=== PATIENT | male | born 1975 | race Caucasian/White ===

== ENCOUNTER 2016-09-09 11:02 | Outpatient (CLI) | payer BC ==
[~2016-09-09] VITALS: Ht 177.8 cm; Wt 107.7 kg
[2016-09-09] MEDS ORDERED: RT-ALBUINH IH (11:14)
[2016-09-09] MEDS ORDERED: ALBU0.63 IH (11:14)
[2016-09-09 11:16] VITALS: BP 133/91
== END 2016-09-09 12:00 | disposition home or self-care (01) ==
LOC: PREOP 11:02
PROVIDERS: ATTEND Podiatrist Foot & Ankle Surgery
DX: Z01.818 Encounter for other preprocedural examination (principal); Z11.2 Encounter for screening for other bacterial diseases; M20.21 Hallux rigidus, right foot
CPT/HCPCS: 87081

== ENCOUNTER 2016-09-19 08:55 | Day surgery (SDC) | payer BC ==
--- NOTE | 2016-09-09 11:27 | HISTORY AND PHYSICAL ---
DICTATING PHYSICIAN: Dr. Connell DATE OF ADMISSION: 09/19/[address] Shaikh. CHIEF COMPLAINT: Right foot, big toe surgery to have done by Dr. Shaikh. ALLERGIC TO MEDICATIONS: ERYTHROMYCIN which makes me vomit MEDICATIONS NOW ON: Albuterol rescue inhaler for asthma p.r.n. SURGERIES: Left knee 18 years ago ACL football injury. FAMILY HISTORY: Mother asthma. Denies TB, diabetes, heart disease, lung disease, cancer. REVIEW OF SYSTEMS: HEAD: Denies headache, dizziness, fainting. EYES, EARS, NOSE AND THROAT: Denies diplopia, tinnitus, sore throat. RESPIRATORY: I have asthma. Denies TB, coughing, congestion, smoking or wheezing. HEART: Denies heart problems, chest pain or heart murmur. GASTROINTESTINAL: Appetite good. Denies blood in stools, diarrhea, constipation, ulcer, vomiting. GENITOURINARY: Denies blood, pain, frequency. PHYSICAL EXAMINATION: The patient is a white male, well-nourished, well-developed, in no acute respiratory distress at rest. Pulse 60, blood pressure 140/90, weight 236. EARS: Not inflamed. EYES: No conjunctivitis or icterus. THROAT: Not inflamed. NECK: Thyroid not enlarged. No abnormal cervical lymphadenopathy noted. HEART: Regular rate and rhythm. LUNGS: Clear to auscultation. ABDOMEN: Soft. Liver and spleen not palpable good bowel sounds. EXTREMITIES: No pretibial edema. Good dorsalis pedis pulses noted. The patient okay to have surgery. We will be on standby if has any problems. Job ID: [id number] Dictated Date: 09/09/2016 10:00:03 Social Work Therapist Date: 09/09/2016 11:21:55/arsalan
[~2016-09-19] VITALS: Ht 177.8 cm; Wt 107.7 kg
[~2016-09-19 08:55] MED LIST: ALBU0.63 IH; RT-ALBUINH IH
[2016-09-19] MEDS ORDERED: NS (IVPB) 50 ML ONE ×2 (08:58→09:01)
[2016-09-19] MEDS ORDERED: ceFAZolin 1,000 MG (ANCEF) VIAL ONE ×2 (08:58→09:01)
[2016-09-19] MEDS ORDERED: ceFAZolin 1 GM/NS 50 ML IVPB IV ONE ×2 (09:15)
[2016-09-19] MEDS ORDERED: CATHETER FLUSH 10 ML SYR IV PRN (09:15)
[2016-09-19 09:16] VITALS: BP 134/96
[2016-09-19] MEDS ORDERED: LACTATED RINGERS 1,000 ML IV PRN (09:20)
[2016-09-19] MEDS ORDERED: LIDOCAINE PF 2% 10 ML (XYLOCAINE) AMP ONE (09:27)
[2016-09-19] MEDS ORDERED: ROCURONIUM 50 MG/5 ML (ZEMURON) VIAL IV ONE (09:27)
[2016-09-19] MEDS ORDERED: ONDANSETRON 4 MG/2 ML (SDV) Z0FRAN ONE (09:27)
[2016-09-19] MEDS ORDERED: fentaNYL INJECTION 100 MCG/2 ML AMP ONE ×2 (09:27→10:13)
[2016-09-19] MEDS ORDERED: proPOfol 200 MG/20 ML (DIPRIVAN) VIAL IV ONE (09:27)
[2016-09-19] MEDS ORDERED: LIDOCAINE JELLY 2% (XYLOCAINE) 5 ML TUBE ONE (09:27)
[2016-09-19] MEDS ORDERED: MIDAZOLAM 2 MG/2 ML (VERSED) VIAL ONE (09:28)
[2016-09-19] MEDS ORDERED: DEXAMETHASONE PF 10 MG/ML (DECADRON) VIAL ONE ×2 (09:30→10:37)
[2016-09-19] MEDS ORDERED: BUPIVACAINE 0.5% 30 ML (SENSORCAINE) VIAL ONE (09:30)
--- NOTE | 2016-09-19 09:46 | Progress Note-Pre Operative ---
Pre-Operative Progress Note H&P Reviewed The H&P was reviewed, patient examined and no changes noted. Date H&P Reviewed: Sep 19, 2016 Time H&P Reviewed: 09:35 Pre-Operative Diagnosis: Hallux Rigidus, right MARCEL STEVE DPM Sep 19, 2016 9:46 am
--- NOTE | 2016-09-19 11:00 | Progress Note-Post Operative ---
Post-Operative Progess Note Surgeon (s)/Curatorial Specialist (s) Surgeon MARCEL STEVE DPM Curatorial Specialist: None Pre-Operative Diagnosis Hallux Rigidus, right Post-Operative Diagnosis Same Post-Op Procedure Note Date of Procedure: Sep 19, 2016 Name of Procedure Performed: Cheilectomy, right Description of the Procedure: Reduction of bone spurs to the right 1st MTPJ Findings of the Procedure large exostosis to the right 1st MTPJ Anesthesia Type General Estimated blood loss (mL): Minimal Specimen(s) collected/removed Dorsal spurring of the right 1st metatarsal head MARCEL STEVE DPM Sep 19, 2016 11:00 am
[2016-09-19] MEDS ORDERED: HYDR-3812 PO (11:02)
--- NOTE | 2016-09-19 11:04 | Discharge Inst-Simple/Standard ---
Discharge Inst-Standard Patient Instructions/Follow Up Plan of Care/Instructions/FU: See Dr Steve's post operative instruction sheet. Activity as Tolerated: No Goal: Return to full activity Discharge Diet: No Restrictions Return to The Hospital For: Excessive bleeding or pain Other Inst to Patient Range of motion exercises to the right great toe joint, 20 repetitions at least twice a day. MARCEL STEVE DPM Sep 19, 2016 11:04 am
[2016-09-19] MEDS ORDERED: LACTATED RINGERS 1,000 ML IV ONE (11:05)
[2016-09-19] MEDS ORDERED: SEVOFLURANE (ULTANE) 15 ML INHAL SOLN ONE (11:06)
[2016-09-19] MEDS ORDERED: MEPERIDINE (DEMEROL) INJ 50 MG/ML IVP PRN (11:15)
[2016-09-19] MEDS ORDERED: ONDANSETRON 4 MG/2 ML (SDV) Z0FRAN IVP PRN ×2 (11:15→11:30)
[2016-09-19] MEDS ORDERED: LACTATED RINGERS 1,000 ML IV SCH (11:17)
[2016-09-19] MEDS ORDERED: morphine INJ 10 MG/ML 1ML (SYR OR VIAL) ONE (11:25)
[2016-09-19] MEDS: morphine INJ 10 MG/ML 1ML (SYR OR VIAL) IVP PRN ×2 (11:28→11:35)
[2016-09-19] MEDS ORDERED: HYDROcodone/APAP 5 MG/325 MG (LORTAB) TAB PO PRN (11:30)
[2016-09-19 12:00] VITALS: BP 126/85
--- NOTE | 2016-09-19 12:16 | OPERATIVE REPORT ---
DATE OF SERVICE: 09/19/2016 SURGEON: Adwoa Steve DPM PREOPERATIVE DIAGNOSIS: Hallus rigidus, right. POSTOPERATIVE DIAGNOSIS: Hallux rigidus, right. PROCEDURE: Cheilectomy, right foot. WOUND CLASS: Clean. ANESTHESIA: General. HEMOSTASIS: Pneumatic thigh tourniquet at 300 mmHg. INDICATION: This 41-year-old male presents complaining of a painful right great toe joint. Conservative therapy has been with unsatisfactory results and the patient is agreeable to surgical intervention after risks and complications were discussed at length. No guarantees were extended to the patient and he is willing to proceed. PROCEDURE: The patient was brought back to the operating table and placed in a secure, supine position. A general anesthetic was then induced. A pneumatic thigh tourniquet was placed on the right lower extremity over several layers of padding. An appropriate timeout was of course performed. The right foot was then prepped and draped in the normal sterile manner. The right foot was then elevated and allowed to exsanguinate after which the tourniquet was inflated to 300 mmHg. Attention was then directed to the dorsal aspect of the right 1st metatarsophalangeal joint where a 5 cm longitudinal linear incision was created. The incision was deepened in the same plane with great care to identify and retract all vital neurovascular structures. The only necessary blood vessels were cauterized as encountered. The incision was deepened down to the capsular tissue where a longitudinal capsulotomy was performed. Just below the capsule tissue was a large dorsal exostosis to the 1st metatarsal head which was resected utilizing a power sagittal saw. The head was fairly contoured and smoothed with a power niranjan. The head of the 1st metatarsal was inspected and approximately 30% of the dorsolateral aspect of the metatarsal head was devoid of hyaline articular cartilage. This area was then fenestrated with a 1.5 mm drill. The wound was flushed with copious amounts of normal saline. We utilized a rongeur. The dorsal medial and lateral spurring to the base of the proximal phalanx was also reduced and smoothed. Excellent range of motion was now appreciated to the right 1st metatarsophalangeal joint with approximately 45 degrees of dorsiflexion. The wound was flushed once again after which closure was then performed in layers. Deep closure was performed with 3-0 Vicryl, superficial with 4-0 Vicryl, skin closed with 4-0 Prolene in a horizontal type stitch. A postoperative injection consisted of 15 mL of 0.5% Marcaine in a Mejia block followed by 10 mg of dexamethasone to the right 1st metatarsophalangeal joint. Postoperative dressing consisted of Betadine soaked Adaptic, sterile 4 x 4s, sterile Kerlix, all secured with a Coban wrap. The patient tolerated the anesthesia and procedure well and was transported from the operating room to the recovery area with vital signs stable and vascular status intact to all digits of the right foot. He was given a prescription for Vicodin and postoperative instructions. He is to followup in the office on 09/29 or sooner if necessary. Job ID: [id number] DocumentID: [id number] Dictated Date: 09/19/2016 11:14:42 Vamp Stitcher Date: 09/19/2016 12:16:00 Dictated By: ADWOA STEVE DPM
[2016-09-19 12:30] VITALS: BP 132/89
[2016-09-19 13:05] VITALS: BP 132/89
[2016-09-19 13:24] VITALS: BP 132/89
== END 2016-09-19 13:24 | disposition home or self-care (01) ==
LOC: SDC 08:55
PROVIDERS: ATTEND Podiatrist Foot & Ankle Surgery
DX: M20.21 Hallux rigidus, right foot (principal); J45.909 Unspecified asthma, uncomplicated
CPT/HCPCS: 88305

== ENCOUNTER 2017-01-04 05:34 | Outpatient (CLI) | payer BC ==
[~2017-01-04] VITALS: Ht 177.8 cm; Wt 107.7 kg
[~2017-01-04 05:34] MED LIST changes: +HYDR-3812 PO
[2017-01-04] MEDS ORDERED: FLUT9.9S NS (09:15)
== END 2017-01-04 09:22 ==
LOC: PREOP 05:34
PROVIDERS: ATTEND Podiatrist Foot & Ankle Surgery
DX: Z01.818 Encounter for other preprocedural examination (principal); M25.871 Other specified joint disorders, right ankle and foot

== ENCOUNTER 2017-01-06 12:16 | Day surgery (SDC) | payer BC ==
[~2017-01-06] VITALS: Ht 177.8 cm; Wt 107.7 kg
[~2017-01-06 12:16] MED LIST changes: +FLUT9.9S NS
[2017-01-06] MEDS ORDERED: ceFAZolin 1 GM/NS 50 ML IVPB IV ONE ×2 (13:00)
[2017-01-06] MEDS ORDERED: MIDAZOLAM 2 MG/2 ML (VERSED) VIAL ONE (13:41)
[2017-01-06] MEDS ORDERED: ONDANSETRON 4 MG/2 ML (SDV) Z0FRAN ONE ×2 (13:41→15:17)
[2017-01-06] MEDS ORDERED: proPOfol 200 MG/20 ML (DIPRIVAN) VIAL IV ONE (13:41)
[2017-01-06] MEDS ORDERED: fentaNYL INJECTION 100 MCG/2 ML AMP ONE (13:41)
[2017-01-06] MEDS ORDERED: LIDOCAINE PF 2% 5 ML (XYLOCAINE) VIAL ONE (13:41)
[2017-01-06] MEDS ORDERED: SEVOFLURANE (ULTANE) 15 ML INHAL SOLN ONE ×4 (13:41→16:04)
[2017-01-06] MEDS ORDERED: LACTATED RINGERS 1,000 ML IV ONE (13:41)
[2017-01-06] MEDS: LACTATED RINGERS 1,000 ML IV PRN ×2 (13:48→15:05)
[2017-01-06] MEDS ORDERED: DEXAMETHASONE PF 10 MG/ML (DECADRON) VIAL ONE (14:21)
[2017-01-06] MEDS ORDERED: BUPIVACAINE 0.5% 30 ML (SENSORCAINE) VIAL ONE (14:21)
--- NOTE | 2017-01-06 14:27 | Progress Note-Pre Operative ---
Pre-Operative Progress Note H&P Reviewed The H&P was reviewed, patient examined and no changes noted. Date Seen by Provider: Jan 06, 2017 Time Seen by Provider: 14: Date H&P Reviewed: Jan 06, 2017 Time H&P Reviewed: : Pre-Operative Diagnosis: Sesamoiditis right foot MARCEL STEVE DPM Jan 06, 2017 2:26 pm
[2017-01-06 14:38] VITALS: BP 124/76
[2017-01-06] MEDS ORDERED: morphine INJ 10 MG/ML 1ML (SYR OR VIAL) ONE (15:17)
[2017-01-06] MEDS ORDERED: LACTATED RINGERS 1,000 ML IV SCH (16:16)
--- NOTE | 2017-01-06 16:16 | Progress Note-Post Operative ---
Post-Operative Progess Note Surgeon (s)/Percussion Instrument Repairer (s) Surgeon MARCEL STEVE DPM Percussion Instrument Repairer: None Pre-Operative Diagnosis Sesamoiditis right foot Post-Operative Diagnosis Same Procedure & Operative Findings Date of Procedure 01/06/17 Procedure Performed/Findings Lateral sesamoidectomy, right foot Anesthesia Type General Estimated Blood Loss Estimated blood loss (mL): Minimal Specimens/Packing Specimens Removed Lateral Sesamoid, right Packing: None MARCEL STEVE DPM Jan 06, 2017 4:16 pm
[2017-01-06] MEDS ORDERED: HYDR-3812 PO (16:18)
[2017-01-06] MEDS ORDERED: HYDROcodone/APAP 5 MG/325 MG (LORTAB) TAB PO PRN (16:30)
[2017-01-06] MEDS: morphine INJ 10 MG/ML 1ML (SYR OR VIAL) IVP PRN ×3 (16:30→16:40)
[2017-01-06] MEDS ORDERED: HYDROmorphone (DILAUDID) 2 MG/ML VIAL IVP PRN (16:30)
[2017-01-06] MEDS ORDERED: MEPERIDINE (DEMEROL) INJ 50 MG/ML IVP PRN (16:30)
[2017-01-06] MEDS ORDERED: ONDANSETRON 4 MG/2 ML (SDV) Z0FRAN IVP PRN ×2 (16:30)
[2017-01-06 17:10] VITALS: BP 141/101
[2017-01-06 17:40] VITALS: BP 142/92
--- NOTE | 2017-01-06 18:00 | Diagnostic Imaging Report ---
INDICATION: Surgery. FINDINGS: Fluoroscopy was utilized by surgery during sesamoidectomy. IMPRESSION: Fluoroscopy utilized during surgery. Dictated by: Dictated on workstation # [id number]
[2017-01-06 18:10] VITALS: BP 143/96
[2017-01-06 18:50] VITALS: BP 143/96
--- NOTE | 2017-01-06 20:32 | OPERATIVE REPORT ---
DATE OF SERVICE: 01/06/2017 DATE OF SERVICE: 01/06/2017 SURGEON: MARCEL STEVE DPM. PREOPERATIVE DIAGNOSIS: 1. Lateral sesamoiditis, right foot. 2. History of hallux rigidus, right first metatarsal phalangeal joint. POSTOPERATIVE DIAGNOSIS: 1. Lateral sesamoiditis, right foot. 2. History of hallux rigidus, right first metatarsal phalangeal joint. PROCEDURE: Lateral sesamoidectomy, right foot. WOUND CLASS: Clean. ANESTHESIA: General. HEMOSTASIS: Pneumatic ankle tourniquet 300 mmHg. INDICATION: This 41-year-old male presents complaining of lateral sesamoid pain. Conservative therapy was met with unsatisfactory results and the patient is agreeable to surgical intervention after risks and complications were explained to the patient. No guarantees were extended to the patient and he is willing to proceed. PROCEDURE: The patient was brought back to the operating table, placed in a secure supine position. Appropriate time out was performed. The general anesthetic was then induced. Pneumatic thigh tourniquet was placed on the right lower extremity. There were several layers of padding. The right foot was then prepped and draped in normal sterile manner. The right foot was then elevated and allowing to exsanguinate after which the tourniquet was inflated to 300 mmHg. Attention was then directed to the dorsal aspect of the right first metatarsal phalangeal joint where on there was a lateral bias to the incision that is approximately 5 cm in length. The incision was deepened in the same plane. Great care was taken to identify and retract all vital neurovascular structures. Only the necessary blood vessels were cauterized as encountered. The incision was deepened down to the inner metatarsal space where blunt dissection was carried. Lateral capsulorrhaphy was performed after which the conjoined tendon of the adductor hallucis was identified and retracted. Next the fibular sesamoidal ligament was released. During this dissection some loose bony fragments from the metatarsal head was identified and resected. The wound was flushed with copious amounts of normal saline. Attempt to get down to the lateral sesamoid was made but was unsuccessful. A plantar incision was then made. Intraoperative C-arm helped guide the 2 mm linear incision to the plantar aspect of the first head metatarsal space just adjacent to the fibular sesamoid. Blunt dissection was carried out to the sesamoidal apparatus where a longitudinal incision was created. The lateral sesamoid was then shelled from its attachment from the peroneus brevis tendon. Great care was taken to medially deviate the flexor hallucis longus tendon. The sesamoid was removed en toto and was confirmed by C-arm. The wound was flushed with copious amounts of normal saline and closure was then performed in layers. The closure was performed both to the dorsal and plantar incision with 3-0 Vicryl, superficial closure with 4-0 Vicryl, skin closure with 4-0 Prolene in a horizontal mattress type stitch to this dorsal and plantar incisions. Postoperative injection consisted of 10 mL of 0.5% Marcaine injected in local infusions of surgical site. We also injected 10 mg of dexamethasone to the lateral aspect of the first metatarsal phalangeal joint, right. Postoperative dressing consisted of betadine soaked adaptic, sterile 4 x 4's, sterile Kerlix, all secured with a Coban wrap. The patient tolerated anesthesia procedure well and was transported from the operating room to the recovery area with vital signs stable and vascular status intact to all digits of the right foot. He is to follow up in my office in 10 days period of time or sooner if necessary. Job ID: [id number] DocumentID: [id number] Dictated Date: 01/06/2017 16:22:48 Form Building Supervisor Date: 01/06/2017 20:31:37 Dictated By: UNIQUE BARRERA
== END 2017-01-06 18:50 | disposition home or self-care (01) ==
LOC: SDC 12:16
PROVIDERS: ATTEND Podiatrist Foot & Ankle Surgery
DX: M25.871 Other specified joint disorders, right ankle and foot (principal); J45.909 Unspecified asthma, uncomplicated; Z79.899 Other long term (current) drug therapy
CPT/HCPCS: 87081

== ENCOUNTER → 2020-08-24 | Outpatient (CLI) | payer SELFPAY ==
[~2020-08-24] MED LIST changes: +ACHD5005 PO; -HYDR-3812 PO
--- NOTE | 2020-08-24 08:43 | Diagnostic Imaging Report ---
EXAMINATION: CT calcium scoring without contrast. TECHNIQUE: Multiple contiguous axial images were obtained through the chest without the use of intravenous contrast for purposes of calcium scoring. All CT scans use one or more of the following dose optimizing techniques: automated exposure control, MA and/or KvP adjustment based on a patient size and exam type, or iterative reconstruction. HISTORY: Hyperlipidemia. COMPARISON: None available. FINDINGS: The calculated coronary artery calcium score is zero. There is no edema or pneumonia. No pleural effusion. No pneumothorax. No suspicious nodules. Heart size is normal. No pericardial effusion. Aorta is normal in caliber. There is no axillary or supraclavicular lymphadenopathy. There is no mediastinal lymphadenopathy. Limited views of the upper abdomen are unremarkable. There are no suspicious osseus lesions. IMPRESSION: Calculated coronary artery calcium score of zero. Dictated by: Dictated on workstation # [id number]
== END ==
LOC: RAD FS 08:14
PROVIDERS: ATTEND Family Medicine
DX: E78.5 Hyperlipidemia, unspecified (principal)
CPT/HCPCS: 75571

== ENCOUNTER 2022-01-08 13:01 | Emergency (ER) | payer BC, OTHER ==
[~2022-01-08] VITALS: Ht 177.8 cm; Wt 114.5 kg
[2022-01-08] MEDS ORDERED: ANTACID SUSP 30 ML UDC (MYLANTA) PO ONE (13:45)
[2022-01-08] MEDS ORDERED: LIDOCAINE 2% VISCOUS 15 ML UDC PO ONE (13:45)
[2022-01-08] MEDS ORDERED: KETOROLAC 30 MG/ML VIAL IVP STA (13:53)
[2022-01-08] MEDS ORDERED: NS IV 1000 ML 1,000 ML IV STA (13:53)
[2022-01-08 14:05] LABS: BASOPHILS % (AUTO) 0 % (0-10); EOSINOPHILS # (AUTO) 0.2 10^3/uL (0.0-0.3); EOSINOPHILS % (AUTO) 2 % (0-10); HEMATOCRIT 44 % (40-54); HEMOGLOBIN 15.2 g/dL (13.3-17.7); LYMPHOCYTES # (AUTO) 2.6 10^3/uL (1.0-4.0); LYMPHOCYTES % (AUTO) 27 % (12-44); MEAN CORPUSCULAR HEMOGLOBIN 31 pg (25-34); MEAN CORPUSCULAR HGB CONC 35 g/dL (32-36); MEAN CORPUSCULAR VOLUME 91 fL (80-99); MEAN PLATELET VOLUME 10.5 fL (9.0-12.2); MONOCYTES # (AUTO) 0.7 10^3/uL (0.0-1.0); MONOCYTES % (AUTO) 7 % (0-12); NEUTROPHILS # (AUTO) 6.1 10^3/uL (1.8-7.8); NEUTROPHILS % (AUTO) 63 % (42-75); PLATELET COUNT 244 10^3/uL (130-400); WHITE BLOOD COUNT 9.7 10^3/uL (4.3-11.0)
--- NOTE | 2022-01-08 14:15 | ED Abdominal Pain ---
General Chief Complaint: Abdominal/GI Problems Stated Complaint: EPIGASTRIC PAIN Nursing Triage Note: Patient c/o RUQ pain that started last night. Pt. states his pain last night was a sharp pain and states today he is having pressure. Pt. denies any fevers, N/V/D, AMOR, or urinary symptoms. Pt. states he had 2 BM yesterday. Pt. denies any Hx. of Gallbladder issues. Pt. states he has a Hx. of GERD. Pt. tender to RUQ with palpation. Source of Information: Patient History of Present Illness Date Seen by Provider: Jan 08, 2022 Time Seen by Provider: 13:39 Initial Comments 46-year-old male presenting with right upper quadrant abdominal pain. He states that this pain has been off and on for a while but usually is just more of an ache or discomfort. Last night after supper he had sharp pain that has persisted. The sharp pain was severe enough he could not sleep last night. He states that he is not going to his back or radiating. He does have a history of GERD and reflux that is worse when he is laying down at night. He did try taking some Dulcolax in case he was constipated and that helps him have a bowel movement but it did not make any difference on his pain. He denies any fever, chills, nausea, vomiting, diarrhea, pain with urination, blood in stool, blood in his urine. He had eaten wings and tapioca pudding last night prior to his episode of pain. If he lays down the pain is worse. If he is sitting upright he states the pain is more of just an ache. Timing/Duration: 12-24 Hours Severity/Quality: Severe Location: RUQ Radiation: No Radiation Activities at Onset: Other (after eating) Modifying Factors: Worsens With Eating, Worsens With Lying down Associated Symptoms: No Back Pain, No Chest Pain, No Diaphoresis, No Fever/Chills, No Fatigue, No Headache, No Heartburn, No Nausea/Vomiting, No Rash, No Shortness of Air, No Swelling/Mass in Abdomen, No Syncope, No Weakness Allergies and Home Medications Allergies Coded Allergies: erythromycin base (Verified Allergy, Intermediate, N/V, 01/04/17) Patient Home Medication List Home Medication List Reviewed: Yes Albuterol Sulfate (Proair Hfa) 1 Puff Puff, 2 PUFF IH Q4H PRN for SHORTNESS OF BREATH, (Reported) Entered as Reported by: FRANK TRAORE on 09/09/16 1114 Fluticasone Propionate (Flonase Allergy Relief) 9.9 Ml [place].susp, 1 SPRAY NS DAILY, (Reported) Entered as Reported by: FRANK TRAORE on 01/04/17 0915 Hydrocodone Bit/Acetaminophen (Lortab 5 Mg Tablet) 1 Each Tablet, 1-2 TAB PO Q4-6HR PRN for PAIN Prescribed by: MARCEL STEVE on 01/06/17 1618 Hydrocodone/Acetaminophen (Hydrocodone-Acetamin 5-325 mg) 5 Mg-325 Mg Tablet, 1 TAB PO Q6H PRN for PAIN-SEVERE (8-10) Prescribed by: EDDIE BURKS on 01/08/22 1517 Review of Systems Review of Systems Constitutional: No chills, No fever EENTM: No Symptoms Reported Respiratory: No Symptoms Reported Cardiovascular: No Symptoms Reported Gastrointestinal: See HPI Genitourinary: No Symptoms Reported Musculoskeletal: no symptoms reported Skin: no symptoms reported Psychiatric/Neurological: No Symptoms Reported Endocrine: No Symptoms Reported Past Zgdfepi-Zfhjqq-Ynxmye Hx Patient Social History Tobacco Use?: No Smokeless Tobacco Frequency: Never a User Use of E-Cig and/or Vaping dev: No Use of E-Cig and/or Vaping Jayden: Never a User Substance use?: No Alcohol Use?: Yes Alcohol Frequency: Rarely Pt feels they are or have been: No Immunizations Up To Date Influenza Vaccine Up-to-Date: Yes; Up-to-Date Seasonal Allergies Seasonal Allergies: Yes Past Medical History Surgery/Hospitalization HX: ADHD, Asthma, GERD Asthma Reproductive Disorders: No Sexually Transmitted Disease: No HIV/AIDS: No Gastroesophageal Reflux Arthritis Loss of Vision: Denies Hearing Impairment: Denies Adverse Reaction/Blood Tranf: No (N/A) Physical Exam Vital Signs Vital Signs - First Documented 01/08/22 13:06 Temp 37.1 Pulse 72 Resp 12 B/P (MAP) 139/88 (105) Pulse Ox 97 O2 Delivery Room Air Capillary Refill : Height/Weight/BMI Height: 5'10.00" Weight: 237lbs. 6.0oz. 107.748405ha; 36.00 BMI Method: General Appearance: no apparent distress, obese HEENT: PERRL/EOMI, pharynx normal Neck: non-tender, full range of motion, supple, normal inspection Respiratory: chest non-tender, lungs clear, normal breath sounds, no respiratory distress, no accessory muscle use Cardiovascular: normal peripheral pulses, regular rate, rhythm Gastrointestinal: normal bowel sounds, soft, no pulsatile mass; No distended, No guarding, No rebound; tenderness (RUQ pain and positive Reyna's) Rectal: deferred Extremities: normal range of motion, non-tender, normal inspection, normal capillary refill Back: no CVA tenderness Neurologic/Psychiatric: alert, oriented x 3 Skin: normal color, warm/dry Images 1 - RUQ abd pain with palpation and positive Reyna's Progress/Results/Core Measures Results/Orders Lab Results Laboratory Tests Test 01/08/22 14:04 Range/Units White Blood Count 9.7 4.3-11.0 10^3/uL Red Blood Count 4.84 4.30-5.52 10^6/uL Hemoglobin 15.2 13.3-17.7 g/dL Hematocrit 44 40-54 % Mean Corpuscular Volume 91 80-99 fL Mean Corpuscular Hemoglobin 31 25-34 pg Mean Corpuscular Hemoglobin Concent 35 32-36 g/dL Red Cell Distribution Width 13.4 10.0-14.5 % Platelet Count 244 130-400 10^3/uL Mean Platelet Volume 10.5 9.0-12.2 fL Immature Granulocyte % (Auto) 1 % Neutrophils (%) (Auto) 63 42-75 % Lymphocytes (%) (Auto) 27 12-44 % Monocytes (%) (Auto) 7 0-12 % Eosinophils (%) (Auto) 2 0-10 % Basophils (%) (Auto) 0 0-10 % Neutrophils # (Auto) 6.1 1.8-7.8 10^3/uL Lymphocytes # (Auto) 2.6 1.0-4.0 10^3/uL Monocytes # (Auto) 0.7 0.0-1.0 10^3/uL Eosinophils # (Auto) 0.2 0.0-0.3 10^3/uL Basophils # (Auto) 0.0 0.0-0.1 10^3/uL Immature Granulocyte # (Auto) 0.1 0.0-0.1 10^3/uL Sodium Level 139 135-145 MMOL/L Potassium Level 4.9 3.6-5.0 MMOL/L Chloride Level 107 98-107 MMOL/L Carbon Dioxide Level 23 21-32 MMOL/L Anion Gap 9 5-14 MMOL/L Blood Urea Nitrogen 15 7-18 MG/DL Creatinine 1.20 0.60-1.30 MG/DL Estimat Glomerular Filtration Rate 75 BUN/Creatinine Ratio 13 Glucose Level 100 70-105 MG/DL Calcium Level 9.3 8.5-10.1 MG/DL Corrected Calcium 8.5-10.1 MG/DL Total Bilirubin 0.5 0.1-1.0 MG/DL Aspartate Amino Transf (AST/SGOT) 29 5-34 U/L Alanine Aminotransferase (ALT/SGPT) 38 0-55 U/L Alkaline Phosphatase 80 40-136 U/L Total Protein 7.8 6.4-8.2 GM/DL Albumin 4.6 H 3.2-4.5 GM/DL Lipase 36 8-78 U/L My Orders Orders - EDDIE BURKS MD Lidocaine 2% Viscous 15 Ml (Xylocaine Vi (01/08/22 13:45) Antacid Suspension (Mylanta Suspension (01/08/22 13:45) Comprehensive Metabolic Panel (01/08/22 13:53) Lipase (01/08/22 13:53) Ed Iv/Invasive Line Start (01/08/22 13:53) Cbc With Automated Diff (01/08/22 13:53) Ct Abdomen/Pelvis W (01/08/22 13:53) Ketorolac Injection (Toradol Injection) (01/08/22 13:53) Ns Iv 1000 Ml (Sodium Chloride 0.9%) (01/08/22 13:53) Iohexol Injection (Omnipaque 350 Mg/Ml 1 (01/08/22 14:30) Received Contrast (Hold Metformin- Contr (01/08/22 14:30) Ns (Ivpb) (Sodium Chloride 0.9% Ivpb Bag (01/08/22 14:30) Medications Given in ED Current Medications Medications Dose Ordered Sig/Liliana Route Start Time Stop Time Status Last Admin Dose Admin Al Hydrox/Mg Hydrox/Simethicone 30 ml ONCE ONCE PO 01/08/22 13:45 01/08/22 13:46 DC 01/08/22 13:40 30 ML Lidocaine HCl 15 ml ONCE ONCE PO 01/08/22 13:45 01/08/22 13:46 DC 01/08/22 13:40 15 ML Vital Signs/I&O 01/08/22 01/08/22 13:06 15:25 Temp 37.1 Pulse 72 62 Resp 12 B/P (MAP) 139/88 (105) 140/99 Pulse Ox 97 98 O2 Delivery Room Air Room Air Blood Pressure Mean: 105 Progress Progress Note #1: Progress Note A GI cocktail was tried in case any of this was GERD but his symptoms seem to be more right upper quadrant and possible gallbladder. His pain was not improved with GI cocktail so labs were drawn and a CT scan was ordered. Give IV fluid normal saline 1 L bolus for hydration, Toradol to try and help with pain. Progress Note #2: Progress Note CBC and chemistry are stable without acute significant abnormality. The CT scan does not show acute process to account for his symptoms. His gallbladder does appear to be enlarged to me but no definite stones. There is no pericholecystic fluid. His LFTs are all normal. Counseled patient and spouse about findings and results. Patient states that his pain is a 2 or 3. Will discharge with a few hydrocodone if needed for severe pain. Counseled on bland low-fat diet. Give outpatient order for gallbladder ultrasound. Given information and phone numbers for him to call to try and set that up through [facility] or [facility]. Advised he may still need to do a nuclear medicine scan such as a HIDA scan to check on the function of his gallbladder. Also given information for Dr. Gutierrez the surgeon on-call if patient has continued pain and problems he may need to follow-up with the surgeon at an especially if he has gallstones and gallbladder dysfunction he would need surgery for removal of the gallbladder Diagnostic Imaging Diagonstic Imaging: CT Plain Films/CT/US/NM/MRI: abdomen, pelvis Comments NAME: EASTON HENNINGPATRICE Lo MED REC#: [id number] PT STATUS: REG ER : 1975 PHYSICIAN: EDDIE BURKS MD ADMIT DATE: 01/08/22/ER FS Draft Date of Exam:01/08/22 CT ABDOMEN/PELVIS W EXAMINATION: CT abdomen and pelvis with intravenous contrast. TECHNIQUE: Multiple contiguous axial images were obtained through the abdomen and pelvis after the uneventful administration of intravenous contrast. All CT scans use one or more of the following dose optimizing techniques: automated exposure control, MA and/or KvP adjustment based on patient size and exam type or iterative reconstruction. HISTORY: Right upper quadrant abdominal pain. COMPARISON: None available. FINDINGS: The heart is unremarkable. The included lung bases are clear. The liver, spleen, pancreas, adrenal glands and kidneys have a normal appearance. The gallbladder demonstrates no evidence of cholelithiasis. The portal vein is patent. There is no pathologically enlarged mesenteric or retroperitoneal adenopathy. The bowel loops are nondilated. The appendix is visualized in the right lower quadrant and has a normal appearance. There is no free fluid or free air. No acute osseous abnormality. Ureters and bladder are grossly normal. There is no free air, loculated collection or adenopathy in the pelvis. IMPRESSION: 1. No acute abnormality in the abdomen and pelvis. No bowel resection, free fluid or free air. Normal appendix. 2. No CT evidence of cholelithiasis or acute cholecystitis. Dictated on workstation # [id number] Dict: 01/08/22 1432 Trans: 01/08/22 1447 [facility] [id number] Interpreted by: JEAN CARROLL DO Electronically signed by: Reviewed: Reviewed by Me Departure Impression Primary Impression: Colicky RUQ abdominal pain Disposition: 01 HOME, SELF-CARE Condition: Stable Departure-Patient Inst. Decision time for Depature: 15:15 Referrals: HALEY ESTRADA MD (PCP) Primary Care Physician BROOKE GUTIERREZ DO Patient Instructions: Abdominal Pain, Adult ED, Gallbladder Diet Add. Discharge Instructions: Follow a strict low-fat bland diet. See about setting up an ultrasound to take a look at the gallbladder. You could call [facility] radiology scheduling at [phone]. You could call them between 7 and 7:30 in the morning on Monday to see about setting up an ultrasound for that day. If [facility] was not able to schedule you for an ultrasound on Monday you could also try calling the [facility] at [phone] and see if [facility] was available to do the ultrasound here in [place]. Once the ultrasound was done that showed gallstones you could see if Dr. Estrada can set you up with a surgeon for the gallbladder. Dr. Gutierrez is the on-call surgeon this weekend and his number is on your paperwork as well. All discharge instructions reviewed with patient and/or family. Voiced understanding. Scripts Hydrocodone/Acetaminophen (Hydrocodone-Acetamin 5-325 mg) 5 Mg-325 Mg Tablet 1 TAB PO Q6H PRN for PAIN-SEVERE (8-10) for 3 Days, #12 TAB 0 Refills Prov: EDDIE BURKS MD 01/08/22 EDDIE BURKS MD Jan 08, 2022 14:15
[2022-01-08 14:28] LABS: ALANINE AMINOTRANSFERASE 38 U/L (0-55); ALBUMIN 4.6 GM/DL (3.2-4.5); ALKALINE PHOSPHATASE 80 U/L (40-136); BILIRUBIN,TOTAL 0.5 MG/DL (0.1-1.0); BUN/CREATININE RATIO 13; CALCIUM 9.3 MG/DL (8.5-10.1); CARBON DIOXIDE 23 MMOL/L (21-32); CHLORIDE 107 MMOL/L (98-107); GFR ESTIMATED 75; GLUCOSE 100 MG/DL (70-105); LIPASE 36 U/L (8-78); POTASSIUM 4.9 MMOL/L (3.6-5.0); SODIUM 139 MMOL/L (135-145); TOTAL PROTEIN 7.8 GM/DL (6.4-8.2)
[2022-01-08] MEDS ORDERED: HOLD METFORMIN - RECEIVED CONTRAST 20 ML VIAL IV SCH (14:30)
[2022-01-08] MEDS ORDERED: IOHEXOL 350 MG/ML 100 ML (OMNIPAQUE 350) VIAL IV NR (14:30)
[2022-01-08] MEDS ORDERED: NS 100 ML (IVPB) BAG IV NR (14:30)
--- NOTE | 2022-01-08 14:48 | Diagnostic Imaging Report ---
EXAMINATION: CT abdomen and pelvis with intravenous contrast. TECHNIQUE: Multiple contiguous axial images were obtained through the abdomen and pelvis after the uneventful administration of intravenous contrast. All CT scans use one or more of the following dose optimizing techniques: automated exposure control, MA and/or KvP adjustment based on patient size and exam type or iterative reconstruction. HISTORY: Right upper quadrant abdominal pain. COMPARISON: None available. FINDINGS: The heart is unremarkable. The included lung bases are clear. The liver, spleen, pancreas, adrenal glands and kidneys have a normal appearance. The gallbladder demonstrates no evidence of cholelithiasis. The portal vein is patent. There is no pathologically enlarged mesenteric or retroperitoneal adenopathy. The bowel loops are nondilated. The appendix is visualized in the right lower quadrant and has a normal appearance. There is no free fluid or free air. No acute osseous abnormality. Ureters and bladder are grossly normal. There is no free air, loculated collection or adenopathy in the pelvis. IMPRESSION: 1. No acute abnormality in the abdomen and pelvis. No bowel resection, free fluid or free air. Normal appendix. 2. No CT evidence of cholelithiasis or acute cholecystitis. Dictated by: Dictated on workstation # [id number]
[2022-01-08] MEDS ORDERED: ACHD5005 PO (15:16)
[2022-01-08 15:25] VITALS: BP 140/99
== END 2022-01-08 15:25 | disposition home or self-care (01) ==
LOC: EDUNIT# 13:01 → ER FS 13:02
DX: R10.11 Right upper quadrant pain (principal); Z28.310 Unvaccinated for COVID-19
CPT/HCPCS: 36415; 74177; 80053; 83690; 85025; Q9967

== ENCOUNTER → 2022-01-11 | Outpatient (CLI) | payer BC ==
--- NOTE | 2022-01-11 10:01 | Diagnostic Imaging Report ---
PROCEDURE: US Gallbladder. TECHNIQUE: Multiple real-time grayscale images were obtained over the right upper quadrant in various projections. INDICATION: Right upper quadrant pain. FINDINGS: The gallbladder appeared normal. No stone or sludge. The biliary ducts nondilated. The unobstructed right kidney normal. The portal vein patent and showed a normal hepatopetal directional flow in the liver. Shadowing bowel gas obscures from visualization the pancreas and the extrahepatic bile duct as well as much of the aorta and IVC. No demonstrated ascites. IMPRESSION: Acoustical windows were limited by shadowing bowel gas at the central retroperitoneum, however no ascites or hepatobiliary abnormality identified and the right kidney unobstructed and normal in appearance. Dictated by: Dictated on workstation # [id number]
== END ==
LOC: RAD FS 07:53
PROVIDERS: ATTEND Family Medicine
DX: R10.11 Right upper quadrant pain (principal)
CPT/HCPCS: 76705

== ENCOUNTER → 2022-02-03 | Outpatient (CLI) | payer BC ==
[~2022-02-03] MED LIST changes: +CATHETER FLUSH 10 ML SYR IVP PRN
--- NOTE | 2022-02-03 14:25 | Diagnostic Imaging Report ---
INDICATION: Right upper quadrant pain. TECHNIQUE: Acquisitions were acquired over the abdomen after the administration of 5.41 mCi of technetium 99m Choletec. Ejection fraction was evaluated after the patient ingested Ensure after 60 minutes. FINDINGS: There is homogeneous uptake of isotope throughout the liver. There is significant accumulation within the gallbladder by 60 minutes. There is free flow of activity in the small bowel. Ejection fraction is abnormally low at 27.9% IMPRESSION: No evidence of cystic duct obstruction, however there is a somewhat lower than expected ejection fraction of 27.9% Dictated by: Dictated on workstation # [id number]
== END ==
LOC: CARD 09:09
PROVIDERS: ATTEND Nurse Practitioner Family
DX: R10.11 Right upper quadrant pain (principal)
CPT/HCPCS: 78227; A9537